=== PATIENT | female | born 2000 | race Caucasian/White ===

== ENCOUNTER 2025-01-30 22:07 | Emergency (ER) | payer OTHER, SELFPAY ==
[2025-01-30 22:07] VITALS: BMI 31.2
[2025-01-30 22:09] VITALS: BP 124/78; PULSE 97; RESP 19; TEMP 36.5; O2SAT 100
[2025-01-30 22:14] VITALS: PULSE 98; RESP 20; O2SAT 98
--- NOTE | 2025-01-30 22:28 | PD.EDRME ---
Rapid Medical Screening Exam RME Arrival date/time: 01/30/25 22:07 Chief Complaint: Seizure Time Seen by Provider: 01/30/25 22:33 Vital signs: Vital Signs Temperature 97.7 F 01/30/25 22:09 Pulse Rate 97 01/30/25 22:09 Respiratory Rate 19 01/30/25 22:09 Blood Pressure 124/78 01/30/25 22:09 Pulse Oximetry (%) 100 01/30/25 22:09 Oxygen Delivery Method Room Air 01/30/25 22:09 RME Narrative: 24-year-old female brought in by ambulance from a [facility]. [employer] say that everybody was drinking and they thought they saw her stiffen up. However everyone was intoxicated and cannot for certain states she had a seizure. Patient states she does not have seizures and she admits to drinking but states felt a little bit of chest pressure and then woke up with people taking her vitals. Exam: No apparent injuries to body no tongue laceration speaking coherently Clinical Impression: ETOH abuse
--- NOTE | 2025-01-30 22:29 | XR_ITS ---
EXAMINATION: AP chest single view TECHNIQUE: AP portable upright chest single view Date and time: January 30, 2025, 1145 hours INDICATIONS: Shortness of breath today, seizure FINDINGS: Normal heart size No aspiration pneumonia Osseous structures are intact IMPRESSION: No active disease
[2025-01-30] MEDS: SODIUM CHLORIDE 0.9% 1000 ML 1,000 ML 999 ML IV (22:41)
[2025-01-30 23:41] LABS: Collection Type, Urine Clean Catch
[2025-01-30 23:56] LABS: Bilirubin,Urine Negative (Negative); Blood,Urine Negative (Negative); Clarity,Urine Clear (Clear/Hazy); Color,Urine Colorless (Lt Yel-Yel); Glucose, Urine 3+ (Negative); Ketones,Urine Negative (Negative); Leukocyte Esterase,Urine Negative (Negative); Nitrite,Urine Negative (Negative); PH,Urine 6.0 (5.0-7.0); Protein,Urine Negative (Neg - Trace); RBC,Urine 12 /hpf (0-3); Specific Gravity,Urine 1.011 (1.001-1.035); Squamous Epithelial Cell,Urine 1 /hpf (0-5); Urobilinogen,Urine Negative mg/dL (0.0-1.0); WBC,Urine 1 /hpf (0-5)
[2025-01-31] LABS: Basophils # (Auto) 0.1 Thou/mm3 (0.0-0.2); Basophils % (Auto) 1 % (0-2.5); Eosinophils # (Auto) 0.0 Thou/mm3 (0.0-0.5); Eosinophils % (Auto) 0 % (0-10); Hematocrit 43.9 % (36.0-46.0); Hemoglobin 14.7 g/dL (12.0-16.0); Immature Granulocytes Auto 0.08 Thou/mm3 (0.00-0.00); Lymphocytes # (Auto) 1.0 Thou/mm3 (1.0-4.8); Lymphocytes % (Auto) 13 % (10-50); Mean Corpuscular HGB Conc 33.5 g/dl (31.0-37.0); Mean Corpuscular Hemoglobin 29.3 pg (25.0-35.0); Mean Corpuscular Volume 88 fL (80-100); Monocytes # (Auto) 0.5 Thou/mm3 (0.0-0.8); Monocytes % (Auto) 6 % (0-12); Neutrophils # (Auto) 6.3 Thou/mm3 (1.8-7.7); Neutrophils % (Auto) 80 % (37-80); Nucleated Red Blood Cell # 0.00 Thou/mm3 (0.00-0.00); Nucleated Red Blood Cell % 0 /100 WBC (0); Platelet Count 253 Thou/mm3 (140-440); RDW Standard Deviation 39.5 fL (36.4-46.3); Red Blood Count 5.01 Miln/mm3 (4.00-5.20); White Blood Count 7.9 Thou/mm3 (3.6-11.0)
[2025-01-31 00:04] LABS: Amphetamine/Methamp Scrn,U Negative (Negative); Barbiturate Screen,Urine Negative (Negative); Benzodiazepines Screen,Urine Negative (Negative); Benzoylecgonine Screen, Ur Negative (Negative); Fentanyl Screen,Urine Negative (Negative); Opiate Screen,Urine Negative (Negative); THC Screen,Urine Negative (Negative)
[2025-01-31 00:11] LABS: Alanine Aminotransferase 12 U/L (10-49); Albumin, Serum 5.2 gm/dL (3.5-5.0); Albumin/Globulin Ratio 2.0 (1.2-2.2); Alcohol, Blood Medical 210.3 mg/dL (0-10.0); Alkaline Phosphatase 81 U/L (46-116); Anion Gap 15 (7-16); Aspartate Amino Transferase 25 U/L (0-34); BUN/Creatinine Ratio 9 Ratio (12-20); Bilirubin,Total 1.3 mg/dL (0.3-1.2); Blood Urea Nitrogen 7 mg/dL (9-23); Calcium 9.5 mg/dL (8.3-10.6); Calcium (Corrected) 9.5 mg/dL (8.5-10.1); Carbon Dioxide 23.0 mMol/L (20.0-31.0); Chloride 107 mMol/L (98-107); Creatinine (Component) 0.8 mg/dL (0.6-1.3); Estimated Creatinine Clearance 96.4 mL/min (>60); Globulin 2.6 gm/dL (2.3-3.5); Glucose 83 mg/dL (74-106); Magnesium 2.0 mg/dL (1.6-2.6); Osmolality,Calculated 285 (275-295); Potassium 3.6 mMol/L (3.4-5.1); Sodium 145 mMol/L (136-145); Total Protein 7.8 gm/dL (5.7-8.2); eGFR > 60 See Note
--- NOTE | 2025-01-31 00:19 | EDNOTE_ITS ---
ED Seizures RME/HPI General Chief Complaint: Seizure Stated Complaint: ETOH Time Seen by Provider: 01/30/25 22:33 Arrival date/time: 01/30/25 22:07 RME / HPI RME / HPI Narrative: 24-year-old female brought in by ambulance from a [employer]. [employer] say that everybody was drinking and they thought they saw her stiffen up. However everyone was intoxicated and cannot for certain states she had a seizure. Patient states she does not have seizures and she admits to drinking but states felt a little bit of chest pressure and then woke up with people taking her vitals. Dr. Connors?s Main ED Evaluation: 24yo female presents to the ED after having reportedly been drinking alcohol this evening and upon transport home, had a syncopal episode or possibly fell asleep prior to having been awoken by EMS that were contacted by co-passengers in the vehicle. No seizure-activity reported. No urinary/bowel incontinence or tongue bite noted. PMH unremarkable for DM, HTN, or seizure disorder. PSH unremarkable. Denies tobacco or illicit drug use. NKA. Related Data Allergies Allergy/AdvReac Type Severity Reaction Status Date / Time No Known Allergies Allergy Verified 01/30/25 22:15 Review of Systems Review of Systems Systems Reviewed: All systems reviewed, normal except as documented ED Exam Narrative Physical exam: GENERAL APPEARANCE: alert and oriented x 4, well-developed, well-nourished, appropriately interactive, no acute distress VITALS: All vitals were reviewed and the pulse ox is 100% on room air, which is normal according to my interpretation. HEENT: Normocephalic, atraumatic; pupils equal, round, reactive to light, nystagmus to the horizontal plane with fatigability; EOMI; mucous membranes pink, moist; oropharynx clear NECK: Supple LUNGS: CTABL; no wheezes, no rales, no rhonchi HEART: Regular rate, regular rhythm; normal S1, S2; no murmurs ABDOMEN: non distended; normal BS; soft, no tenderness, no guarding, no rebound; no masses, no organomegaly, no hernia BACK: no CVA tenderness EXTREMITIES: atraumatic; no edema NEUROLOGIC: awake; alert and oriented x4; cranial nerves II-XII grossly intact; no focal sensory or motor deficits PSYCHIATRIC: appropriate mood and affect SKIN: warm, dry, normal color; no rashes Course Quality Measures none Orders Category Date Time Status XR chest 1V Stat Exams 01/30/25 22:29 Completed Alcohol, Blood Medical Stat Lab 01/30/25 23:18 Completed CBC Stat Lab 01/30/25 23:18 Completed CMP [Comprehensive Metabolic Panel] Stat Lab 01/30/25 23:18 Completed Drug Screen,Urine Stat Lab 01/30/25 23:07 Completed Magnesium Stat Lab 01/30/25 23:18 Completed UA [Urinalysis] Stat Lab 01/30/25 23:07 Completed Sodium Chloride 0.9% 1000 ml [Ns] 1,000 ml Med 01/30/25 22:29 Discontinued IV 999 mls/hr Vital Signs Vital signs: Vital Signs Temperature 97.7 F 01/30/25 22:09 Pulse Rate 97 01/30/25 22:09 Respiratory Rate 19 01/30/25 22:09 Blood Pressure 124/78 01/30/25 22:09 Pulse Oximetry (%) 100 01/30/25 22:09 Oxygen Delivery Method Room Air 01/30/25 22:09 Seizure MDM Narrative MDM Narrative:: Scribe Attestation: 01/31/25 - Melanie Miranda am scribing for and in the presence of Dr. Connors. 24yo female presents to the ED after having reportedly been drinking alcohol this evening and upon transport home, had a syncopal episode or possibly fell asleep prior to having been awoken by EMS that were contacted by co-passengers in the vehicle. No seizure-activity reported. Please see PE findings. Labs demonstrated normal CBC and chemistries. UA without evidence of infection. Tox screen negative. Ethanol at 0.21. CXR was obtained and is unremarkable. Patient placed on terrazzo tile maker, administered IV fluid hydration, and serial re- evaluation performed. Patient remained stable and intact throughout ED course. Suspect blackout versus patient having fell asleep. Patient is stable for discharge home. Will delinquency counselor for excessive alcohol use and discharge patient into the custody of her friend. Patient data External records reviewed:: [facility] previous records (Per chart review, patient has no previous ED visits or admissions to this facility.) and EMS form Clinical information provided by:: patient Social determinants that could affect healthcare access:: alcohol use Patient has the following chronic illnesses:: none How is presenting disease/condition affected by chronic disease/condition?: no chronic disease Evaluation data The following diagnostics were reviewed and interpreted by me:: lab results and radiology exam(s) Lab and/or radiology exams considered but not ordered:: none Interpretation Summary: [facility] Report Signed Patient: LIANET CRAWLEY. Record#: [id number] Birthdate: 2000 Age/Sex: 24 / F Location: [facility] Attending Dr: Ordering Physician: Radha Platt PA-C Date of Service: 01/30/25 Procedure(s): XR chest 1V Accession Number(s): [id number] cc: Radha Platt PA-C; Adam Garcia MD; NO PRIMARY/FAMILY,PHYSICIAN~ EXAMINATION: AP chest single view TECHNIQUE: AP portable upright chest single view Date and time: January 30, 2025, 1145 hours INDICATIONS: Shortness of breath today, seizure FINDINGS: Normal heart size No aspiration pneumonia Osseous structures are intact IMPRESSION: No active disease Dictated By: Adam Garcia MD Signed By: <Electronically signed by Adam Garcia MD in OV> 01/31/25 0004 Medications / Prescriptions Medications or Prescriptions considered but not ordered:: none Medication administrations:: Medication Administration History Discontinued Medications Sodium Chloride (Ns) 1,000 mls @ 999 mls/hr IV .Q1H1M ONE Stop: 01/30/25 23:29 Last Infusion: 01/31/25 00:01 Dose: Infused Documented By: Admin: 01/30/25 22:41 Dose: 999 mls/hr Documented By: CB see above Consultations Consultation(s) initiated? (list below): No Diagnosis Seizure Differential Diagnosis: other (vasovagal syncope, alcohol intoxication, dehydration) Most likely diagnosis given after review of the tests above:: see clinical impression below Admission Indicated Admission indicated?: not indicated Admission Request Was there a request for admission?: No Disposition Plan Disposition Plan: Discharge Discharge Attestation Discharge Attestation: The patient and all family members were given an opportunity to ask questions and understood the discharge instructions. Discharge instructions specifically effects, indications for sooner follow up or return to the emergency department, and the expected course of current diagnosis. Patient condition: Stable Discharge Plan Plan Patient Disposition: HOME (Self Care) Discharge Disposition comment: Stable Prescriptions/Referrals Referrals: No Primary/Family,Physician [Primary Care Provider] - In 1 week Problem List Clinical Impression: Alcoholic intoxication Impression comment: Alcohol intoxication Patient/Caregiver Discharge Instructions Discharge Activity: activity as tolerated Education Materials: ED Alcohol Intoxication Additional Instructions: Avoid excessive alcohol consumption. Maintain adequate rest increase fluid hydration and return if worsening Print Language: Mongolian Stand Alone Forms: Miriam Award Info., Work/School Release, Patient Portal Info Letter
[2025-01-31 00:56] VITALS: BP 101/46; PULSE 101; RESP 16; TEMP 36.9; O2SAT 96
== END 2025-01-31 01:02 | disposition home or self-care (01) ==
PROVIDERS: Physician Assistant; Emergency Provider Emergency Medicine
DX: F10.229 Alcohol dependence with intoxication, unspecified (principal); R06.02 Shortness of breath; R56.9 Unspecified convulsions; Y90.7 Blood alcohol level of 200-239 mg/100 ml
CPT/HCPCS: 36415; 71045; 80053; 80307; 80320; 81001; 83735; 85025; 96360; 99283; J7030; G0480